=== PATIENT | male | born 2000 | race Caucasian/White ===

== ENCOUNTER 2024-11-23 10:40 | Emergency (ER) | payer OTHER ==
[~2024-11-23] VITALS: Ht 180.3 cm; Wt 101.9 kg
[2024-11-23] MEDS ORDERED: COLC0.6T53 PO (10:50)
[2024-11-23] MEDS ORDERED: NAPR220C23 PO (10:51)
[2024-11-23] MEDS ORDERED: INDO50CA91 PO (12:51)
[2024-11-23 12:57] VITALS: BP 119/72; TEMP 97.4; O2SAT 100
== END 2024-11-23 13:04 | disposition home or self-care (01) ==
LOC: M ED 10:40
DX: M79.675 Pain in left toe(s) (principal); J30.81 Allergic rhinitis due to animal (cat) (dog) hair and dander